=== PATIENT | male | born 1950 | race Caucasian/White ===

== ENCOUNTER 2021-09-26 09:24 | Inpatient (IN) | payer OTHER, MEDICARE ==
[~2021-09-26] VITALS: Ht 167.6 cm; Wt 83.0 kg
[2021-09-26 10:21] LABS: BASOPHILS # (AUTO) 0.1 X10'3 (0-0.2); BASOPHILS % (AUTO) 0.4 % (0-1); EOSINOPHILS # (AUTO) 0.2 X10'3 (0-0.9); EOSINOPHILS % (AUTO) 1.4 % (0-6); HEMATOCRIT 43.6 % (42.0-52.0); HEMOGLOBIN 14.4 g/dl (14.0-17.9); LYMPHOCYTES # (AUTO) 1.1 X10'3 (1.1-4.8); LYMPHOCYTES % (AUTO) 8.1 % (21-51); MEAN CORPUSCULAR HEMOGLOBIN 27.9 PG (27.0-31.0); MEAN CORPUSCULAR HGB CONC 32.9 g/dL (33.0-36.5); MEAN CORPUSCULAR VOLUME 84.9 FL (78-98); MONOCYTES # (AUTO) 1.5 X10'3 (0-0.9); MONOCYTES % (AUTO) 10.9 % (2-12); NEUTROPHILS # (AUTO) 10.9 X10'3 (1.8-7.7); NEUTROPHILS % (AUTO) 79.2 % (42-75); PLATELET COUNT 185 X10'3 (140-440); RED BLOOD COUNT 5.14 X10'6 (4.70-6.10); RED CELL DISTRIBUTION WIDTH 14.4 % (11.5-14.5); WHITE BLOOD COUNT 13.7 X10'3 (4.5-11.0)
[2021-09-26 10:38] LABS: ALANINE AMINOTRANSFERASE 32 U/L (12-78); ALBUMIN 3.7 G/DL (3.4-5.0); ALBUMIN/GLOBULIN RATIO 0.9 (1.1-1.5); ALKALINE PHOSPHATASE 67 IU/L (46-116); ANION GAP 9 (8-16); ASPARTATE AMINO TRANSFERASE 22 U/L (10-37); BILIRUBIN,TOTAL 0.4 MG/DL (0.1-1.0); BLOOD UREA NITROGEN 23 MG/DL (7-18); BUN/CREATININE RATIO 16.5 (5.4-32.0); CALCIUM 9.7 MG/DL (8.5-10.1); CHLORIDE 103 MMOL/L (99-107); CREATININE 1.39 MG/DL (0.60-1.10); GLUCOSE 82 MG/DL (70-104); POTASSIUM 3.9 MMOL/L (3.5-5.1); SODIUM 140 MMOL/L (135-145); TOTAL CARBON DIOXIDE 28.1 MMOL/L (24-32); eGFR 50 ML/MIN
[2021-09-26] MEDS ORDERED: iohexol 350MG/ML 100ml bottle IV ONE ×2 (11:45→12:03)
[2021-09-26] MEDS ORDERED: cefTRIAXone 1g/NS 100ml IVPB 100 ML IV ONE (16:00)
[2021-09-26] MEDS ORDERED: insulin Lispro (HumaLOG) vial - multi-dose SQ SCH (17:00)
[2021-09-26] MEDS ORDERED: magnesium hydroxide 30ml (MOM) UD suspension PO PRN (17:00)
[2021-09-26] MEDS ORDERED: mag hydrox/Alum hydrox/simeth 30ml oral suspension PO PRN (17:00)
[2021-09-26] MEDS ORDERED: acetaminophen 325mg tablet PO PRN ×2 (17:00)
[2021-09-26] MEDS ORDERED: MESSAGE TO PHARMACY PO ONE (17:00)
[2021-09-26] MEDS ORDERED: morphine 2 MG/ML inj. syringe IV PRN ×2 (17:00)
[2021-09-26] MEDS ORDERED: HYDROcodone/acetaminophen 5mg/325mg tablet PO PRN (17:00)
[2021-09-26] MEDS ORDERED: ondansetron/PF 4mg/2ml inj IV PRN (17:00)
[2021-09-26] MEDS ORDERED: DEXTROSE 15 GM of carb/4 tabs (each vial/BOTTLE has 4 tablets) PO PRN ×2 (17:00)
[2021-09-26] MEDS ORDERED: dextrose 50%-water 50ml dispensing syringe IV PRN ×2 (17:00)
[2021-09-26] MEDS ORDERED: glucagon, human recombinant 1mg kit SUBCUT PRN (17:00)
[2021-09-26 18:15] LABS: HEMOGLOBIN A1C 6.7 % (4.5-6.2)
[2021-09-26] MEDS ORDERED: insulin glargine (Lantus) pen - multi-dose SQ SCH (21:00)
[2021-09-26 22:00] VITALS: BP 134/75
[2021-09-26] MEDS: docusate sod 100mg capsule PO SCH (22:39)
[2021-09-26] MEDS: enoxaparin 80mg/0.8ml syringe SUBCUT SCH (22:40)
[2021-09-27 02:00] VITALS: BP 128/75
[2021-09-27 05:38] LABS: BASOPHILS # (AUTO) 0.1 X10'3 (0-0.2); BASOPHILS % (AUTO) 0.6 % (0-1); EOSINOPHILS # (AUTO) 0.2 X10'3 (0-0.9); EOSINOPHILS % (AUTO) 1.4 % (0-6); HEMATOCRIT 42.2 % (42.0-52.0); HEMOGLOBIN 13.8 g/dl (14.0-17.9); LYMPHOCYTES # (AUTO) 1.3 X10'3 (1.1-4.8); LYMPHOCYTES % (AUTO) 11.7 % (21-51); MEAN CORPUSCULAR HEMOGLOBIN 27.9 PG (27.0-31.0); MEAN CORPUSCULAR HGB CONC 32.8 g/dL (33.0-36.5); MEAN CORPUSCULAR VOLUME 85.1 FL (78-98); MEAN PLATELET VOLUME 9.4 FL (7.4-10.4); MONOCYTES # (AUTO) 1.5 X10'3 (0-0.9); MONOCYTES % (AUTO) 13.1 % (2-12); NEUTROPHILS # (AUTO) 8.4 X10'3 (1.8-7.7); NEUTROPHILS % (AUTO) 73.2 % (42-75); PLATELET COUNT 183 X10'3 (140-440); RED BLOOD COUNT 4.95 X10'6 (4.70-6.10); RED CELL DISTRIBUTION WIDTH 14.6 % (11.5-14.5); WHITE BLOOD COUNT 11.5 X10'3 (4.5-11.0)
[2021-09-27 06:00] VITALS: BP 126/57
[2021-09-27] MEDS ORDERED: levoFLOXACIN-Levaquin 750MG/D5 150 ML IV SCH (08:00)
[2021-09-27] MEDS ORDERED: enoxaparin 40mg/0.4ml syringe SUBCUT SCH (08:00)
[2021-09-27] MEDS: docusate sod 100mg capsule PO SCH (08:37)
[2021-09-27] MEDS: enoxaparin 80mg/0.8ml syringe SUBCUT SCH (08:46)
[2021-09-27 10:00] VITALS: BP 140/58
[2021-09-27] MEDS ORDERED: LEVO750T46 PO (13:04)
[2021-09-27] MEDS ORDERED: ENOX80DI13 SUBCUT (13:04)
[2021-09-27] MEDS ORDERED: WARF3TAB56 PO (13:04)
--- NOTE | 2021-09-27 15:01 | NUR ---
Patient discharged home with . No current distress or pain. 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 Meds called into [facility] per request from patient and patient has copy of meds for [facility] from [facility] Polanco. IV taken out. All belongings taken from room. Pt has home 02 already incase he needs it. Patient appears appropriate for discharge. No home meds in pharmacy. Pt instructed on Lovenox injections while waiting for therapeutic level to build up for warfarin.
== END 2021-09-27 14:15 | disposition home or self-care (01) | DRG 190 ==
LOC: ER 09:25 → ED HOLD 17:06 → ORTHO 4S 21:00
PROVIDERS: ADMIT Internal Medicine; ATTEND Internal Medicine
PROC: B32T1ZZ Computerized Tomography (CT Scan) of Left Pulmonary Artery using Low Osmolar Contrast (ICD-10-PCS; principal; 2021-09-26)
PROC: B3201ZZ Computerized Tomography (CT Scan) of Thoracic Aorta using Low Osmolar Contrast (ICD-10-PCS; 2021-09-26)
PROC: B32S1ZZ Computerized Tomography (CT Scan) of Right Pulmonary Artery using Low Osmolar Contrast (ICD-10-PCS; 2021-09-26)
DX: J44.0 Chronic obstructive pulmonary disease with (acute) lower respiratory infection (principal); J18.9 Pneumonia, unspecified organism; J93.9 Pneumothorax, unspecified; J96.11 Chronic respiratory failure with hypoxia; I48.92 Unspecified atrial flutter; N18.30 Chronic kidney disease, stage 3 unspecified; I51.3 Intracardiac thrombosis, not elsewhere classified; N28.1 Cyst of kidney, acquired; K44.9 Diaphragmatic hernia without obstruction or gangrene; E11.51 Type 2 diabetes mellitus with diabetic peripheral angiopathy without gangrene; E11.22 Type 2 diabetes mellitus with diabetic chronic kidney disease; I25.10 Atherosclerotic heart disease of native coronary artery without angina pectoris; Z79.01 Long term (current) use of anticoagulants; Z87.891 Personal history of nicotine dependence; Z95.5 Presence of coronary angioplasty implant and graft; J44.9 Chronic obstructive pulmonary disease, unspecified
CPT/HCPCS: 36415; 71045; 71275; 80053; 82948; 83036; 83880; 84484; 85025; 87040; 93306; 96365; 99285; G0378; J0696; J1650; J1815; J1956; J2270; Q9967